=== PATIENT | male | born 1955 | race Caucasian/White ===

== ENCOUNTER 2016-08-02 06:54 | Day surgery (SDC) | payer OTHER ==
[~2016-08-02] VITALS: Ht 177.8 cm; Wt 91.6 kg
[2016-08-02 07:47] VITALS: Ht 177.8 cm; Wt 91.6 kg
[2016-08-02] MEDS ORDERED: FLOMAX (07:53)
[2016-08-02] MEDS ORDERED: NAPROXEN (07:53)
[2016-08-02] MEDS ORDERED: TRAMADOL (07:53)
[2016-08-02 08:05] VITALS: BP 129/78; PULSE 83; RESP 18
[2016-08-02] MEDS ORDERED: LIDOCAINE 4% SOLUTION 50 ML BTL ONE (08:09)
[2016-08-02] MEDS ORDERED: MIDAZOLAM 1 MG/ML 2 ML INJ ONE ×3 (08:55)
[2016-08-02] MEDS ORDERED: FENTAnyl 50 MCG/ML VIAL ONE (08:55)
[2016-08-02 09:29] VITALS: BP 123/75; PULSE 74; RESP 18
--- NOTE | 2016-08-03 06:53 | GILP ---
DATE OF PROCEDURE: PROCEDURE: Esophagogastroduodenoscopy. PREOPERATIVE DIAGNOSIS: The patient presenting with history of abdominal discomfort, abdominal pain , difficulty in swallowing, rule out gastroesophageal reflux disease, neoplasm, peptic ulcer disease . POSTOPERATIVE DIAGNOSES: 1. Hypertrophic mucosal surface at the gastroesophageal junction. 2. Minimal antral gastritis. 3. Fundal gastritis. 4. Moderate degree of duodenitis. DESCRIPTION OF PROCEDURE: After informed written consent was obtained, the patient was asked to lie on the left lateral side, 4 mg Versed and 50 mcg of fentanyl were given as intravenous anesthesia. When the patient became somnolent, the Olympus video upper endoscope was introduced into the orophar ynx, then into the esophagus. Esophagus showed evidence of a thickening of the GE junction. Multip le biopsies were obtained. Scope at this time was advanced into the stomach. A few areas of erythe ma in the antrum and also fundus were noted. At this time, duodenum was examined. The bulb and the postbulbar area showed evidence of several areas of erythema with no ulcers, no neoplasm. Second a nd third part of the duodenum appeared normal. Biopsy was done from the antrum, the lesser curvatur e, and the fundus to rule out H pylori infection. Scope at this time was withdrawn and on the way o ut, no additional abnormalities detected, and the procedure was terminated. PLAN: Recommend proton pump inhibitor therapy. Dictated By: JAYDEN GAMEZ/FAITH Conf#: [id number] DID#: [id number] CC: [facility], [place], [facility];*EndCC*
--- NOTE | 2016-08-03 07:20 | GILP ---
DATE OF PROCEDURE: NAME OF PROCEDURE: Colonoscopy and polypectomy. PREOPERATIVE DIAGNOSIS: Screening colonoscopy, rule out colon polyps. POSTOPERATIVE DIAGNOSES: 1. A 6 mm flat polyp noted in the rectum at 10 cm from the anus. Polypectomy was performed by fallon vidal the hot snare. 2. A 12 mm wide-based polyp noted in the proximal ascending colon. Hot snare was used and polypect jules was performed. DESCRIPTION OF PROCEDURE: After the informed written consent was obtained, the patient was asked to lie on the left lateral side. Intravenous anesthesia was given which included 5 mg Versed and 75 m cg of fentanyl. When the patient became somnolent, the Olympus video colonoscope was introduced int o the rectum and scope was advanced all the way to the cecum. In the rectum, a 6 mm flat polyp was noted. By using the hot snare, the polypectomy was performed. A 12 mm polyp was noted which is a w andrew-based polyp noted in the proximal ascending colon. By using the hot snare, polypectomy was perf ormed. The rest of the colon was examined thoroughly. Diverticulosis was found to be moderate in s everity. No bleeding noted. No additional abnormalities detected. On the way out, retroflexion wa s performed. Minimal internal hemorrhoids were noted. On the way out, no additional abnormalities detected and the procedure was terminated. PLAN: Recommend wait for the pathology report. Dictated By: JAYDEN GAMEZ/AFITH Conf#: [id number] DID#: [id number] CC: [facility];*EndCC*
== END 2016-08-02 09:18 | disposition home or self-care (01) ==
LOC: GIL 06:54
PROVIDERS: ATTEND Internal Medicine Gastroenterology
DX: Z12.11 Encounter for screening for malignant neoplasm of colon (principal); K62.1 Rectal polyp; D12.2 Benign neoplasm of ascending colon; K29.60 Other gastritis without bleeding; K29.80 Duodenitis without bleeding
CPT/HCPCS: 43239; 45380; 45385; 88305; 88312; J2250; J3010; Z7610

== ENCOUNTER → 2017-06-01 | Outpatient (CLI) | payer OTHER ==
[~2017-06-01] MED LIST: FLOMAX; NAPROXEN; TRAMADOL
--- NOTE | 2017-06-01 17:28 | RADRPT ---
PROCEDURE: Video-fluoroscopy swallowing study. CLINICAL INDICATION: Dysphagia. TECHNIQUE: Fluoroscopic guided video swallowing study was done in conjunction with the speech ther apist. The study was confined to the oral, pharyngeal, and cervical phases of the swallowing mechani sm. 1.5 minutes of fluoroscopy time was used. 14 series of images were obtained. COMPARISON: No prior study is available for comparison. FINDINGS: There is penetration with no evidence of aspiration during the exam. IMPRESSION: 1. Penetration with no aspiration during swallowing. 2. Please refer to the speech therapist's recommendations for future feedings. RPTAT: QQ .Jose Ramirez MD, MD Date Time Electronically viewed and signed by .Jose Ramirez MD, MD on 06/01/2017 17:28 .R/
== END | disposition home or self-care (01) ==
LOC: RAD 12:15
PROVIDERS: ATTEND Otolaryngology
DX: R13.10 Dysphagia, unspecified (principal)
CPT/HCPCS: 74230; 92611

== ENCOUNTER 2018-07-07 06:38 | Day surgery (SDC) | END 2018-07-07 12:45 | disposition home or self-care (01) ==